=== PATIENT | male | born 1980 | race African-American/Black ===

== ENCOUNTER 2021-07-03 22:42 | Emergency (ER) | payer SELFPAY ==
[2021-07-04] MEDS ORDERED: Ibuprofen 200 MG TAB ONE (00:48)
[2021-07-04] MEDS ORDERED: Acetaminophen 500 MG TAB ONE (00:48)
[2021-07-04 19:35] LABS: SARS-CoV-2 PCR by NAA DETECTED (NotDetected)
== END 2021-07-04 00:50 | disposition home or self-care (01) ==
LOC: CSHERS 22:42
DX: U07.1 COVID-19 (principal)
CPT/HCPCS: 87804; 99283; U0003; U0005